=== PATIENT | female | born 1975 ===

== ENCOUNTER 2020-08-28 08:19 | Emergency (ER) | payer OTHER ==
[~2020-08-28] VITALS: Ht 152.4 cm; Wt 84.8 kg
[2020-08-28] MEDS ORDERED: TRUVADA 200 MG1 EACH PO (08:34)
[2020-08-28] MEDS ORDERED: ISENTRESS HD600 MG PO (08:34)
== END 2020-08-28 11:51 | disposition home or self-care (01) ==
LOC: ER 08:19
DX: B34.9 Viral infection, unspecified (principal); Z11.52 Encounter for screening for COVID-19